=== PATIENT | female | born 1980 | race Caucasian/White ===

== ENCOUNTER 2017-08-11 14:00 | Emergency (ER) | payer OTHER ==
--- NOTE | 2017-08-11 14:38 | PDOC ---
History of Present Illness - History of Present Illness Initial Comments: 08/11/17 15:42 The patient is a 36 year old female (right handed), with a significant past medical history of cholecystectomy, who presents to the emergency department with, left arm swelling and pain s/p fall for approx. one day. The patient states she was walking down stairs last night around 9:30 pm when she misstepped on the last step and fell down on her buttocks with her left arm hitting the last step. She states she took Advil for the left arm pain with mild relief and reports her tetanus shot is up to date. The patient reports she is currently on her LMP. She denies any recent head, neck or back pain. She denies any recent numbness, weakness or tingling. She denies any recent loss of consciousness. She denies recent fevers, chills, headache or dizziness. She denies recent nausea, vomit, diarrhea or constipation. She denies recent chest pain or shortness of breath. Allergies: NKA Primary Care Physician: Dr. Torres <Pipo Martinez - Last Filed: 08/11/17 16:38> - General History Source: Patient Exam Limitations: No Limitations <Beverly Hall - Last Filed: 08/11/17 17:17> - General Chief Complaint: Injury Stated Complaint: FELL, LEFT ARM INJURY Time Seen by Provider: 08/11/17 14:38 Past History <Pipo Martinez - Last Filed: 08/11/17 16:38> <Beverly Hall - Last Filed: 08/11/17 17:17> - Past Medical History Allergies/Adverse Reactions: Allergies Allergy/AdvReac Type Severity Reaction Status Date / Time No Known Allergies Allergy Verified 08/11/17 14:35 Home Medications: Ambulatory Orders NK [No Known Home Medication] 08/11/17 Review of Systems - Review of Systems Comments:: 08/11/17 15:44 GENERAL/CONSTITUTIONAL: No fever or chills. No weakness. HEAD, EYES, EARS, NOSE AND THROAT: No change in vision. No ear pain or discharge. No sore throat. CARDIOVASCULAR: No chest pain or shortness of breath. RESPIRATORY: No cough, wheezing, or hemoptysis. GASTROINTESTINAL: No nausea, vomiting, diarrhea or constipation. GENITOURINARY: No dysuria, frequency, or change in urination. MUSCULOSKELETAL: (+) Left arm swelling and pain. No neck or back pain. SKIN: No rash NEUROLOGIC: No headache, vertigo, loss of consciousness, or change in strength/ sensation. ENDOCRINE: No increased thirst. No abnormal weight change. HEMATOLOGIC/LYMPHATIC: No anemia, easy bleeding, or history of blood clots. ALLERGIC/IMMUNOLOGIC: No hives or skin allergy. <Pipo Martinez - Last Filed: 08/11/17 16:38> *Physical Exam - Vital Signs Last Vital Signs Temp Pulse Resp BP Pulse Ox 99.2 F 74 16 105/67 99 08/11/17 14:35 08/11/17 14:35 08/11/17 14:35 08/11/17 14:35 08/11/17 14:35 - Physical Exam Comments: 08/11/17 15:44 GENERAL: Awake, alert, and fully oriented, in no acute distress HEAD: No signs of trauma EYES: PERRLA, EOMI, sclera anicteric, conjunctiva clear ENT: Auricles normal inspection, hearing grossly normal, nares patent, oropharynx clear without exudates. Moist mucosa NECK: Normal ROM, supple, no lymphadenopathy, JVD, or masses EXTREMITIES: (+) 7 mm laceration on the left forearm. Good capillary refill. Normal range of motion. No clubbing or cyanosis. No cords, erythema. NEUROLOGICAL: Cranial nerves II through XII grossly intact. Normal speech, normal gait SKIN: Warm, Dry, normal turgor, no rashes or lesions noted. <Pipo Martinez - Last Filed: 08/11/17 16:38> Medical Decision Making - Medical Decision Making 08/11/17 17:09 36-year-old female, right-hand dominant presents emergency department with left forearm swelling and pain. Patient states she was in her usual state of health, yesterday she slipped on a stair and fell to the left side landing on the left arm. Wound was dressed by her boyfriend. Patient was placed in dressing Patient presents emergency department with a complaint of pain in the left forearm as well as hand. Head is noted to be swollen Patient has pain with extension of her fingers. 2 point pin discrimination is intact. Hand appears bruised. 2+ radial pulse 2+ ulnar pulse Bruising noted in the proximal forearm Will do: X-ray forearm Local wound care Wound has been present since 9:30 PM last night. Cannot suture or Dermabond. Wound was irrigated and Steri-Strips applied. X-ray was read as Air acute lesion seen in the soft tissues along the volar aspect of the forearm at the level of the distal, proximal, forearm. Post traumatic versus infectious. Given this patient's history, I do not believe this is infectious. It appears to be due to trauma Will: discharge to home Give empiric abx Pt asked to monitor for fevers for the next 24 hours If she notices ANY fevers, ANY chills, ANY local redness, ANY drainage, ANY firmness of the forearm RETURN TO THE ER Clinical Impression: fall with forearm injury, initial presentation Lacerations to forearm, initial presentation <Beverly Hall - Last Filed: 08/11/17 17:17> *DC/Admit/Observation/Transfer - Attestations Scribe Attestion: 08/11/17 15:47 Documentation prepared by Pipo Martinez, acting as medical consultant for Beverly Hall MD. <Pipo Martinez - Last Filed: 08/11/17 16:38> - Discharge Dispostion Admit: No <Beverly Hall - Last Filed: 08/11/17 17:17> Diagnosis at time of Disposition: Forearm injury Qualifiers: Encounter type: initial encounter Laterality: left Qualified Code(s): S59.912A - Unspecified injury of left forearm, initial encounter - Discharge Dispostion Disposition: HOME Condition at time of disposition: Stable - Referrals Referrals: Robyn Torres MD [Primary Care Provider] - - Patient Instructions Printed Discharge Instructions: DI for Forearm Muscle Strain, DI for Laceration Repair Steri-Strips Additional Instructions: Ms Malin Thank you for coming into the emergency Department today This is very important YOU MUST MONITOR YOURSELF FOR fevers for the next 24 hours If you notices ANY fevers (by taking your temperature, temp >100), ANY chills, ANY local redness, ANY drainage, ANY firmness of the forearm YOU MUST RETURN TO THE ER IMMEDIATELY Please take medications as prescribed for pain YOU MUST FOLLOW UP WITH YOUR PRIMARY CARE PHYSICIAN WITHIN 1 WEEK DO NOT RE INJURE YOUR ARM dressing can be removed tomorrow morning Steri strips will just fall off - Post Discharge Activity Forms/Work/School Notes: Back to Work
[2017-08-11 14:42] VITALS: BP 105/67; PULSE 74; TEMP 99.2; BMI 22.1
[2017-08-11] MEDS ORDERED: DIPHTH,PERTUSS(ACELL),TET 0.5 ML DISP.SYRIN IM ONE (17:23)
== END 2017-08-11 17:31 | disposition home or self-care (01) ==
LOC: FER 14:00
PROC: 3E0234Z Introduction of Serum, Toxoid and Vaccine into Muscle, Percutaneous Approach (ICD-10-PCS; principal; 2017-08-11)
DX: S59.912A Unspecified injury of left forearm, initial encounter (principal); W18.39XA Other fall on same level, initial encounter; Y93.89 Activity, other specified; Y92.9 Unspecified place or not applicable
CPT/HCPCS: 73090-TC-LT-FY; 90715; 99281-25